=== PATIENT | female | born 1995 | race Caucasian/White ===

== ENCOUNTER 2018-03-23 13:15 | Observation (INO) | payer OTHER, SELFPAY ==
[2018-03-23 13:16] VITALS: BP 130/83; PULSE 85; RESP 18; TEMP 36.1; O2SAT 99; BMI 29.6
--- NOTE | 2018-03-23 13:34 | US_ITS ---
STUDY: ABDOMINAL ULTRASOUND - RIGHT UPPER QUADRANT REASON FOR VISIT: Female, 22 years old. Abdominal pain and vomiting. The patient is 27 weeks . TECHNIQUE: Ultrasound evaluation of the right upper quadrant was performed with real-time and static field-scale imaging. TECHNICAL QUALITY: Adequate. COMPARISON: None. FINDINGS: Liver: The liver measures 13.0 cm. There is normal echogenicity of the liver. The bile ducts are within normal limits. There is hepatic color flow. The direction of portal flow is hepatopetal. There is no demonstrated mass lesion. Gallbladder: Normal distended gallbladder. The gallbladder wall measures 2.0 mm. There is a negative sonographic Adams's sign. There is no pericholecystic fluid. There are multiple echogenic structures within the gallbladder, consistent with multiple gallstones. A small amount of sludge is seen within the gallbladder lumen. Common Bile Duct (C.B.D.): The common bile duct is mildly dilated and measures 7.0 mm. Pancreas: Normal size of the head, body of the pancreas. The tail portion is obscured due to overlying bowel gas. There is normal echogenicity of the pancreas. There is no demonstrated pancreatic mass or cyst. Right Kidney: Normal size of the right kidney. The right kidney measures 12.1 cm x 5.2 cm x 5.4 cm. Normal renal cortex. The right cortex measures 1.5 cm. There is no demonstrated renal mass or cyst. There is mild hydronephrosis of the right kidney. US/Gallbladder IMPRESSION: Multiple gallstones. Sludge is seen within the gallbladder lumen. Mild dilatation of the common bile duct. Electronically Signed: Bryce Osullivan MD at 16:02 EST Tel [phone], Service support ,
--- NOTE | 2018-03-23 13:35 | US_ITS ---
STUDY: SECOND AND THIRD TRIMESTER OBSTETRICAL ULTRASOUND - LIMITED REASON FOR EXAM: Female, 22 years old. Cramping LMP: 09/11/2017 PRIOR ULTRASOUND: None. TECHNIQUE: Transabdominal TECHNICAL QUALITY: Adequate. FINDINGS: There is a single intrauterine fetus. The fetus is in a breech presentation. There is demonstrated cardiac activity with a heart rate of 143 bpm. There is a normal amniotic fluid volume. The largest amniotic fluid pocket measures 4.7 cm. The placenta is fundal in location. There are Grade 0 placental changes. The cervix measures 3.5 cm in length. BIOMETRY: BPD: 7.0: 28 weeks, 1 days HC: 25.9: 28 weeks, 2 days AC: 23.1: 27 weeks, 3 days FL: 5.1: 27 weeks, 3 days Age by LMP: weeks, days. TARAH by LMP: . age by prior US: 27 weeks, 4 days. TARAH by prior US: 06/18/2018. age by current US: 27 weeks, 6 days. TARAH by current US: 06/16/2018. Estimated weight: 1086 grams, +/- 159 grams, 35 percentile. Gender: US/OB Limited With Biometrics IMPRESSION: Single live fetus in a breech presentation. survey not performed on this exam. Placenta is grade 0 and is not low-lying. Cervix is closed. age by current US: 27 weeks, 6 days. TARAH by current US: 06/16/2018. Estimated weight: 1086 grams, +/- 159 grams, 35 percentile. Electronically Signed: Jose Gonzalez MD at 17:04 EST , Service support ,
--- NOTE | 2018-03-23 13:39 | ED.DCSUM_ITS ---
- ER Visit Summary Date of Service: 03/23/18 Chief Complaint: [] Upper abdominal pain, for days, 27 weeks diagnosed with gallstones History of Present Illness: The patient is a 22 F [] she is 27 weeks uncomplicated she indicates for some time she is developed progressively worsening upper abdominal pain caused her to vomit where she cannot eat anything or drink anything, she was seen and evaluated at [facility] in [place] found to have gallstones admitted for what sounds like 24 hours and IV fluids she felt better but reports she still cannot eat or drink she indicates she was not given any specific instructions or follow-up for this process, she is dissatisfied with the care that she received at that facility and she came to [facility] emergency department asking for care could be transferred here for all of her health conditions including her no other past history she has no providers at [place] Physical Examination: [] 130/80 85 General, no distress resting comfortably HEENT is generally unremarkable The neck is supple no adenopathy Cardiovascular, regular rate and rhythm Lungs, clear bilateral Abdomen, soft nontender, she is obviously but nontender denies bleeding Extremities, no clubbing cyanosis or edema Neurologic, awake alert answering questions appropriately moving all 4 extremities Test Results: [] Emergency Department Course and Treatment: [] Long conversation with the patient and her she indicates she is discussed with the care she received in the [place] area she wants to transfer all of her care here explained to her at this point time the emergency department really is not in a position to make these type of specialty referrals on short notice we will obtain screening labs provide IV fluid hydration as she reports she is not able to take anything by mouth no solid or liquid foods as this causes her to have exacerbation of the pain and began vomiting we will discussed with ENVIRONMENTAL EMERGENCIES ASSISTANT on-call Treatment Plan: [] Patient's labs are all generally unremarkable please of those reports, the ultrasound does show gallstones see that report, the formal ultrasound report and OB ultrasound report are also pending, I did speak with Dr. Maya of ENVIRONMENTAL EMERGENCIES ASSISTANT on-call for new patients, spoke with Dr. Artemio pierce who will be by to see the patient discussed options with her once surger y has discussed with the patient will determine her ultimate disposition and consultation with ENVIRONMENTAL EMERGENCIES ASSISTANT on-call Disposition: [] Pending evaluation by surgery Impression: [] 27 weeks , abdominal pain, biliary colic, gallstones This note was generated with [employer] dictation software. It may contain incorrect words, spelling, and punctuation that were not noted in review of the chart prior to signing ED Disposition - Plan for ED Patient: Chief Complaint: Abd Pain Referrals: Care Physician,No Primary [Primary Care Provider] -
[2018-03-23] MEDS: 0.9% Normal Saline 1,000 ML 1000 ML IV (13:54)
[2018-03-23 14:00] LABS: Absolute Lymphocyte Count 1.36 X10^3/ul (0.83-4.51); Absolute Neutrophil Count 5.5 X10^3/uL (2.0-7.7); Basophil# 0.01 X10^3/uL; Basophil% 0.1 % (0-1); Eosinophil# 0.11 X10^3/uL; Eosinophils% 1.5 % (0-5); Hematocrit 35.9 % (37-47); Hemoglobin 12.1 g/dl (12.0-15.0); Lymphocyte # 1.36 X10^3/ul (4.0); Lymphocyte % 18.2 % (19-41); Mean Corp Hgb Conc 33.7 g/gl (32-36); Mean Corpuscular Hgb 29.2 pg (27.0-32.0); Mean Corpuscular Volume 86.7 fL (81-99); Mean Platelet Vol. 9.2 fl (6.2-12.0); Monocyte# 0.49 X10^3/uL; Monocyte% 6.5 % (0-10); Neutrophil # 5.49 X10^3/uL (2.7-7.7); Neutrophil % 73.3 % (47-70); Platelet Count 178 K/mm3 (150-450); RBC Distribution Width CV 13.6 % (11.6-14.6); RBC Distribution Width SD 42.8 fl (35.1-43.9); Red Blood Count 4.14 M/mm3 (4.2-5.4); White Blood Count 7.5 K/mm3 (4.4-11.0)
[2018-03-23 14:02] LABS: POSITIVE COUNT NO; POSITIVE DIFFERENTIAL NO; POSITIVE MORPHOLOGY NO
[2018-03-23 14:13] LABS: AST(SGOT) 26 U/L (15-37); Alanine Aminotransfer ALT/SGPT 45 U/L (13-56); Albumin, Serum 2.6 g/dL (3.2-5.0); Alkaline Phosphatase 80 U/L (45-117); Anion Gap 9 (5-15); BUN 4 mg/dL (7-18); BUN/Creat Ratio 7.7 RATIO (10-20); Calcium,Total 7.9 mg/dL (8.5-10.1); Chloride 111 mmol/L (98-107); Creatinine, Serum 0.52 mg/dL (0.55-1.02); EST Glomerular Filtration Rate 156 mL/min (>60); Est Glom Filt Rate - Afr Amer 189 mL/min (>60); Globulin 3.1 g/dL (2.2-4.2); Glucose 77 mg/dL (74-106); Lipase 151 U/L (73-393); Potassium 3.1 mmol/L (3.5-5.1); Protein, Total 5.7 g/dL (6.4-8.2); Sodium Level 141 mmol/L (136-145)
[2018-03-23 15:37] VITALS: RESP 16
--- NOTE | 2018-03-23 16:04 | NURSING ---
DR URIBE IN ROOM
[2018-03-23] MEDS: 0.9% Normal Saline 1,000 ML 999 ML IV (16:35)
[2018-03-23] MEDS: Potassium Chloride 10mEq/100mL 10 MEQ/100 ML IV.SOLN. 100 MEQ IV BOLUS ×4 (16:35→20:32)
--- NOTE | 2018-03-23 16:41 | NURSING ---
MED SURG GALLSTONES, VOMITING JOJO
--- NOTE | 2018-03-23 16:57 | PCM.HP.STD ---
Problem List (1) Cholecystitis Status: Acute History of Present Illness Date of Admission: 03/23/18 The patient is a 22 year old F who is 27 weeks presented to the emergency room with right upper quadrant and epigastric pain. The patient reports that for the entirety of her she has had no issues. She says that a week ago she began experiencing right upper quadrant and epigastric pain radiating to the back anytime she ate or drink anything. This would cause vomiting. She does not have any nausea. She is not experiencing any fevers or chills. She was admitted to an outside hospital and ultrasound showed gallstones but she was told not to have surgery so she came to our hospital as she was unable to tolerate any food or drink. She is required multiple infusions of saline due to dehydration. 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 Denies: Fever Eyes: Denies: Blurred vision HEENT: Denies: Difficulty Hearing Cardiovascular: Denies: Chest Pain Respiratory: Denies: Cough, Shortness of Breath Gastrointestinal: Reports: Abdominal Pain, Vomiting. Denies: Diarrhea, Hematemesis, Nausea Gynecological: Denies: Vaginal bleeding Musculoskeletal: Denies: Joint Tenderness Skin: Denies: Dryness, Jaundice Neurological: Denies: Balance problems Psychiatric: Denies: Anxiety, Depression Hematologic/ Lymphatic: Denies: Anemia VTE Information - Inpt Only VTE Present on Admission: No VTE Mechan Device Prophylaxis: SCD's Patient Problems: Active and Suspected Problems Cholecystitis (Acute) - Physical Exam General: Alert, Oriented x3, Cooperative HEENT: Atraumatic, PERRLA, EOMI Neck: No JVD Lungs: Clear to auscultation Cardiovascular: Regular rate, Regular Rhythm Abdomen: Soft, Non Tender, Non-Distended, Gravid Extremities: No clubbing Skin: No rashes Musculoskeletal: No Muscle Wasting Lymphatic: No Cervical, Supraclavicular, or Inguinal Adenopathy Neurological: Cranial nerves II-XII grossly intact, Deep Tendon Reflexes 2+/4 and Symmetrical Psych/Mental Status: Normal Affect, Appropriate Vital Signs Temp Pulse Resp BP Pulse Ox 97.0 F L 85 16 130/83 H 99 03/23/18 13:16 03/23/18 13:16 03/23/18 15:37 03/23/18 13:16 03/23/18 13:16 Oxygen Delivery Method Room Air Weight: 177 lb 14.609 oz Body Mass Index (BMI) 29.6 Laboratory Tests Past 24 Hrs 03/23/18 03/23/18 13:45 13:45 WBC 7.5 RBC 4.14 L Hgb 12.1 Hct 35.9 L MCV 86.7 MCH 29.2 MCHC 33.7 RDW 13.6 RDW Differential 42.8 Plt Count 178 MPV 9.2 Immature Gran % (Auto) 0.400 Neut % (Auto) 73.3 H Lymph % (Auto) 18.2 L Dixon % (Auto) 6.5 Eos % (Auto) 1.5 Baso % (Auto) 0.1 Absolute Neuts (auto) 5.5 Absolute Lymphs (auto) 1.36 Total Counted Not Reportable Sodium 141 Potassium 3.1 L Chloride 111 H Carbon Dioxide 21.0 Anion Gap 9 BUN 4 L Creatinine 0.52 L Estim Creat Clear Calc 152.70 Est GFR (MDRD) Af Amer 189 Est GFR (MDRD) Non-Af 156 BUN/Creatinine Ratio 7.7 L Glucose 77 Calcium 7.9 L Total Bilirubin 0.50 Direct Bilirubin 0.30 AST 26 ALT 45 Alkaline Phosphatase 80 Total Protein 5.7 L Albumin 2.6 L Globulin 3.1 Lipase 151 Clinical Impression(s) from Imaging Studies Gallbladder Ultrasound 03/23/18 13:34 IMPRESSION: Multiple gallstones. Sludge is seen within the gallbladder lumen. Mild dilatation of the common bile duct. Electronically Signed: Bryce Osullivan MD at 16:02 EST Tel [phone], Service support , Assessment/Plan All Active Problems Cholecystitis (Acute) 22-year-old female with cholecystitis and biliary colic 1. The patient is having pain with eating or drinking and is unable to tolerate anything by mouth. The patient does have gallstones as well as sludge. The differential would include cholecystitis versus peptic ulcer disease. The patient was started on Carafate in outside hospital and this did not help. As the patient is unable to tolerate any oral intake and does have positive gallstones and sludge I would recommend laparoscopic cholecystectomy. 2. I explained to the patient that I would attempt laparoscopic cholecystectomy tomorrow. If I was unable to perform laparoscopic I would have to convert to an open procedure. I explained the risks including but not limited to bleeding, infection, injury to other organs such as the liver, bile duct, bowels, uterus. I explained the small risk of labor. I also explained that I would likely be doing a cholangiogram as this is low risk to the fetus. 3. I will admit the patient and keep her n.p.o. and keep her on IV fluids. I will consult Dr. Bliss for OB care. She is recommended every shift monitoring as well as preop and postop heart tones. Alvaro Ulloa MD Pager: [facility] [address] [place] [address], [address] [place] [address] Office:
[2018-03-23] MEDS: 0.9% Normal Saline 1,000 ML 125 ML IV (17:00)
[2018-03-23 17:02] LABS: Mucous, Urine 0 SEEN /hpf (<or=2+); Red Blood Cells-Urine 0 SEEN /hpf (0-5)
--- NOTE | 2018-03-23 17:02 | HP.PCM_ITS ---
Problem List (1) Cholecystitis Status: Acute History of Present Illness Date of Admission: 03/23/18 The patient is a 22 year old F who is 27 weeks presented to the emergency room with right upper quadrant and epigastric pain. The patient reports that for the entirety of her she has had no issues. She says that a week ago she began experiencing right upper quadrant and epigastric pain radiating to the back anytime she ate or drink anything. This would cause vomiting. She does not have any nausea. She is not experiencing any fevers or chills. She was admitted to an outside hospital and ultrasound showed gallstones but she was told not to have surgery so she came to our hospital as she was unable to tolerate any food or drink. She is required multiple infusions of saline due to dehydration. 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 Denies: Fever Eyes: Denies: Blurred vision HEENT: Denies: Difficulty Hearing Cardiovascular: Denies: Chest Pain Respiratory: Denies: Cough, Shortness of Breath Gastrointestinal: Reports: Abdominal Pain, Vomiting. Denies: Diarrhea, Hematemesis, Nausea Gynecological: Denies: Vaginal bleeding Musculoskeletal: Denies: Joint Tenderness Skin: Denies: Dryness, Jaundice Neurological: Denies: Balance problems Psychiatric: Denies: Anxiety, Depression Hematologic/ Lymphatic: Denies: Anemia VTE Information - Inpt Only VTE Present on Admission: No VTE Mechan Device Prophylaxis: SCD's Patient Problems: Active and Suspected Problems Cholecystitis (Acute) - Physical Exam General: Alert, Oriented x3, Cooperative HEENT: Atraumatic, PERRLA, EOMI Neck: No JVD Lungs: Clear to auscultation Cardiovascular: Regular rate, Regular Rhythm Abdomen: Soft, Non Tender, Non-Distended, Gravid Extremities: No clubbing Skin: No rashes Musculoskeletal: No Muscle Wasting Lymphatic: No Cervical, Supraclavicular, or Inguinal Adenopathy Neurological: Cranial nerves II-XII grossly intact, Deep Tendon Reflexes 2+/4 and Symmetrical Psych/Mental Status: Normal Affect, Appropriate Vital Signs Temp Pulse Resp BP Pulse Ox 97.0 F L 85 16 130/83 H 99 03/23/18 13:16 03/23/18 13:16 03/23/18 15:37 03/23/18 13:16 03/23/18 13:16 Oxygen Delivery Method Room Air Weight: 177 lb 14.609 oz Body Mass Index (BMI) 29.6 Laboratory Tests Past 24 Hrs 03/23/18 03/23/18 13:45 13:45 WBC 7.5 RBC 4.14 L Hgb 12.1 Hct 35.9 L MCV 86.7 MCH 29.2 MCHC 33.7 RDW 13.6 RDW Differential 42.8 Plt Count 178 MPV 9.2 Immature Gran % (Auto) 0.400 Neut % (Auto) 73.3 H Lymph % (Auto) 18.2 L [place] % (Auto) 6.5 Eos % (Auto) 1.5 Baso % (Auto) 0.1 Absolute Neuts (auto) 5.5 Absolute Lymphs (auto) 1.36 Total Counted Not Reportable Sodium 141 Potassium 3.1 L Chloride 111 H Carbon Dioxide 21.0 Anion Gap 9 BUN 4 L Creatinine 0.52 L Estim Creat Clear Calc 152.70 Est GFR (MDRD) Af Amer 189 Est GFR (MDRD) Non-Af 156 BUN/Creatinine Ratio 7.7 L Glucose 77 Calcium 7.9 L Total Bilirubin 0.50 Direct Bilirubin 0.30 AST 26 ALT 45 Alkaline Phosphatase 80 Total Protein 5.7 L Albumin 2.6 L Globulin 3.1 Lipase 151 Clinical Impression(s) from Imaging Studies Gallbladder Ultrasound 03/23/18 13:34 IMPRESSION: Multiple gallstones. Sludge is seen within the gallbladder lumen. Mild dilatation of the common bile duct. Electronically Signed: Bryce Osullivan MD at 16:02 EST Tel [phone], Service support , Assessment/Plan All Active Problems Cholecystitis (Acute) 22-year-old female with cholecystitis and biliary colic 1. The patient is having pain with eating or drinking and is unable to tolerate anything by mouth. The patient does have gallstones as well as sludge. The differential would include cholecystitis versus peptic ulcer disease. The patient was started on Carafate in outside hospital and this did not help. As the patient is unable to tolerate any oral intake and does have positive gallstones and sludge I would recommend laparoscopic cholecystectomy. 2. I explained to the patient that I would attempt laparoscopic cholecystectomy tomorrow. If I was unable to perform laparoscopic I would have to convert to an open procedure. I explained the risks including but not limited to bleeding, infection, injury to other organs such as the liver, bile duct, bowels, uterus. I explained the small risk of labor. I also explained that I would likely be doing a cholangiogram as this is low risk to the fetus. 3. I will admit the patient and keep her n.p.o. and keep her on IV fluids. I will consult Dr. Bliss for OB care. She is recommended every shift monitoring as well as preop and postop heart tones. Alvaro Ulloa MD Pager: [facility] [address] [place] [address], [address] [place] [address] Office:
[2018-03-23 17:03] VITALS: BP 118/74; PULSE 79; RESP 17; O2SAT 99
[2018-03-23 17:05] LABS: Color, Urine Yellow (Yellow); Glucose, Dipstick Normal (Normal); Ketone-Dipstick 50 mg/dl (Negative); Leukocyte Esterase-Dipstick 100 /ul (Negative); Nitrite-Dipstick Negative (Negative); Occult Blood-Urine Negative /ul (Negative); Protein-Dipstick Negative (Negative); Urine Bilirubin Dipstick Negative (Negative); Urine Clarity Cloudy (Clear); Urine Urobilinogen Normal (Normal)
[2018-03-23 17:14] LABS: Squamous Epithelial Cells - UA 10-25 SEEN /hpf (5-10)
[2018-03-23 17:15] LABS: Bacteria 1+ /hpf (None Seen); White Blood Cells 5-10 SEEN /hpf (0-5)
[2018-03-23 17:22] VITALS: BMI 29.6
[2018-03-23 17:29] VITALS: BMI 29.9
[2018-03-23 17:30] VITALS: BP 114/76; PULSE 77; RESP 16; TEMP 37.1; O2SAT 100
--- NOTE | 2018-03-23 18:04 | NURSING ---
heart rate 140 by chris nolan rn
[2018-03-23 19:36] VITALS: BP 106/65; PULSE 74; RESP 16; TEMP 36.7; O2SAT 98
--- NOTE | 2018-03-23 21:57 | NURSING ---
FHR per doppler 140's at bedside @ 2130
[2018-03-24] VITALS (10 sets, daily range): BP systolic 106–129; BP diastolic 56–81; PULSE 75–91; RESP 16; TEMP 36.4–36.8; O2SAT 93–100
[2018-03-24] MEDS: 0.9% Normal Saline 1,000 ML 125 ML IV ×3 (01:35→23:15)
[2018-03-24 06:00] LABS: Absolute Lymphocyte Count 1.99 X10^3/ul (0.83-4.51); Absolute Neutrophil Count 4.4 X10^3/uL (2.0-7.7); Basophil# 0.02 X10^3/uL; Basophil% 0.3 % (0-1); Eosinophil# 0.17 X10^3/uL; Eosinophils% 2.4 % (0-5); Hematocrit 31.4 % (37-47); Hemoglobin 10.6 g/dl (12.0-15.0); Lymphocyte # 1.99 X10^3/ul (4.0); Lymphocyte % 27.8 % (19-41); Mean Corp Hgb Conc 33.8 g/gl (32-36); Mean Corpuscular Hgb 29.8 pg (27.0-32.0); Mean Corpuscular Volume 88.2 fL (81-99); Mean Platelet Vol. 10.1 fl (6.2-12.0); Monocyte# 0.52 X10^3/uL; Monocyte% 7.3 % (0-10); Neutrophil # 4.43 X10^3/uL (2.7-7.7); Neutrophil % 61.8 % (47-70); Platelet Count 174 K/mm3 (150-450); RBC Distribution Width CV 13.6 % (11.6-14.6); RBC Distribution Width SD 40.9 fl (35.1-43.9); Red Blood Count 3.56 M/mm3 (4.2-5.4); White Blood Count 7.2 K/mm3 (4.4-11.0)
[2018-03-24 06:09] LABS: POSITIVE COUNT NO; POSITIVE DIFFERENTIAL NO; POSITIVE MORPHOLOGY NO
[2018-03-24 06:20] LABS: ALB/GLOB Ratio 0.7 RATIO (0.9-2.4); AST(SGOT) 23 U/L (15-37); Alanine Aminotransfer ALT/SGPT 35 U/L (13-56); Alkaline Phosphatase 63 U/L (45-117); Anion Gap 9 (5-15); BUN 2 mg/dL (7-18); BUN/Creat Ratio 5.4 RATIO (10-20); Calcium,Total 7.4 mg/dL (8.5-10.1); Chloride 113 mmol/L (98-107); Creatinine, Serum 0.37 mg/dL (0.55-1.02); EST Glomerular Filtration Rate 232 mL/min (>60); Est Glom Filt Rate - Afr Amer 280 mL/min (>60); Estimated Creatinine Clearance 205.95 ml/min; Globulin 2.8 g/dL (2.2-4.2); Glucose 70 mg/dL (74-106); Potassium 3.1 mmol/L (3.5-5.1); Protein, Total 4.8 g/dL (6.4-8.2); Sodium Level 142 mmol/L (136-145)
[2018-03-24 07:15] LABS: Magnesium 1.3 mg/dL (1.6-2.6)
[2018-03-24] MEDS: Potassium Chloride 10mEq/100mL 10 MEQ/100 ML IV.SOLN. 100 MEQ IV BOLUS ×4 (07:24→14:45)
--- NOTE | 2018-03-24 08:33 | NURSING ---
pt to or via bed
--- NOTE | 2018-03-24 10:35 | GALL_PTH ---
PATIENT: ROSAMARIA BANDA LOC: MS3 U#:[id number] AGE/SX: 22/F ROOM: MS309 RE03/23/[address]: Dr. Alvaro Ulloa MD : 1995 BED: 1 DIS: 03/25/2018 SPEC #: [id number] RECD: 03/24/18 12:47 STATUS: L[facility] #: [id number] ROBI: 03/24/18 10:[address]: Alvaro Ulloa DEPT: SURGICAL PATHOLOGY RECD BY: Timur Givens ENTERED: 03/24/18 13:32 SP TYPE: IESHA KIDD DR: Dr. Renee Bliss MD No Primary Care Phys Tissues: Gallbladder, NOS Procedures: Surgery Specimen Level III HEADER OPERATION: Laparoscopic cholecystectomy PRE-OP DIAGNOSIS: Cholelithiasis, biliary colic, nausea and vomiting TISSUE SUBMITTED: Gallbladder and contents MICROSCOPIC DIAGNOSIS Gallbladder and contents: Chronic cholecystitis and cholelithiasis. SJ:gina 03/27/18 MICROSCOPIC DESCRIPTION Slides are reviewed. GROSS DESCRIPTION Received is one container labeled with the patient's name and designated gallbladder and contents. The specimen consists of a gallbladder measuring 10 cm in length and up to 3 cm in diameter. The external surface is pink-donohue, smooth and glistening for the most part. Focally it is granular, hemorrhagic and contains cautery artifact. The gallbladder contains green-yellow mucoid bile and multiple, mulberry, yellowish-orange stones measuring in aggregate 3 x 2.5 x 0.5 cm and 0.2 to 0.3 cm in greatest dimension. The mucosa is bile-stained and without any mass lesions. The gallbladder wall measures up to 0.2 cm in thickness. Clip Loading Machine Adjuster sections from the gallbladder and the cystic duct are submitted in one cassette. / VICTORIA:gina 03/24/18 TC:3 CPT: 58186
--- NOTE | 2018-03-24 12:17 | PCM.OPRPT ---
Problem List (1) Cholecystitis Status: Acute Report of Operation Date of Procedure: 03/24/18 Pre-Operative Diagnosis: 1. Cholelithiasis and sludge. 2. Nausea and vomiting Post-Operative Diagnosis: Same Surgery/Procedure Performed:: Laparoscopic cholecystectomy Specimen's removed: Gallbladder and contents Description of Procedure: After obtaining informed consent patient was brought back to the operating room. General anesthesia was induced. The abdomen was prepped and draped in usual sterile fashion. A small midline incision was made superior to the umbilicus and deepened to the level of fascia. The fascia was elevated and incised. Next the peritoneum was elevated and incised in the same fashion. Finger sweep was performed and the Sloan trocar was placed into the abdomen. The balloon was inflated. The abdomen was inflated to 15 mmHg. Next a camera was introduced into the abdomen and the abdomen was inspected. Next under direct visualization three 5-mm ports were placed one subxiphoid and 2 subcostal. Next the gallbladder was elevated and retracted toward the right shoulder. The peritoneum was stripped from the gallbladder. The infundibulum was located and retracted laterally. Next the triangle of Calot was dissected and the cystic duct and cystic artery were identified. Cholangiograms were not done due to the . Three hemolock clips were placed across the cystic duct. The cystic duct was then divided leaving 2 clips on the stump. The cystic artery was clipped and divided in the same fashion. The hook cautery was then used to take the gallbladder off of the gallbladder bed. Hemostasis was obtained. Gallbladder fossa was irrigated and no active bleeding or bile leakage was noted. Next the camera switched to a 5 mm camera and introduced in the subxiphoid port. An Endopouch bag was placed through the umbilical port and the gallbladder was placed into it. The gallbladder was then removed through the umbilical incision. The camera was then reinserted through the umbilical port. The gallbladder fossa was inspected once more and noted to be hemostatic with no leaking bile. The abdomen was suctioned dry. The 5 mm ports were removed under direct visualization. The umbilical port was then removed and the air was removed from the abdomen. Next using an 0 Vicryl suture the umbilical fascia was closed in a [id number] fashion. The umbilical port site was irrigated local anesthetic was administered to all the incisions. All the incisions were closed with interrupted subcuticular 4-0 Monocryl sutures followed by Steri-Strips and dressings. The patient was awoken and taken to PACU in stable condition. - Admit VTE Documentation VTE Mechan Device Prophylaxis: SCD's
--- NOTE | 2018-03-24 12:21 | OP.PCM_ITS ---
Problem List (1) Cholecystitis Status: Acute Report of Operation Date of Procedure: 03/24/18 Pre-Operative Diagnosis: 1. Cholelithiasis and sludge. 2. Nausea and vomiting Post-Operative Diagnosis: Same Surgery/Procedure Performed:: Laparoscopic cholecystectomy Specimen's removed: Gallbladder and contents Description of Procedure: After obtaining informed consent patient was brought back to the operating room. General anesthesia was induced. The abdomen was prepped and draped in usual sterile fashion. A small midline incision was made superior to the umbilicus and deepened to the level of fascia. The fascia was elevated and incised. Next the peritoneum was elevated and incised in the same fashion. Finger sweep was performed and the Sloan trocar was placed into the abdomen. The balloon was inflated. The abdomen was inflated to 15 mmHg. Next a camera was introduced into the abdomen and the abdomen was inspected. Next under direct visualization three 5-mm ports were placed one subxiphoid and 2 subcostal. Next the gallbladder was elevated and retracted toward the right shoulder. The peritoneum was stripped from the gallbladder. The infundibulum was located and retracted laterally. Next the triangle of Calot was dissected and the cystic duct and cystic artery were identified. Cholangiograms were not done due to the . Three hemolock clips were placed across the cystic duct. The cystic duct was then divided leaving 2 clips on the stump. The cystic artery was clipped and divided in the same fashion. The hook cautery was then used to take the gallbladder off of the gallbladder bed. Hemostasis was obtained. Gallbladder fossa was irrigated and no active bleeding or bile leakage was noted. Next the camera switched to a 5 mm camera and introduced in the subxiphoid port. An Endopouch bag was placed through the umbilical port and the gallbladder was placed into it. The gallbladder was then removed through the u mbilical incision. The camera was then reinserted through the umbilical port. The gallbladder fossa was inspected once more and noted to be hemostatic with no leaking bile. The abdomen was suctioned dry. The 5 mm ports were removed under direct visualization. The umbilical port was then removed and the air was removed from the abdomen. Next using an 0 Vicryl suture the umbilical fascia was closed in a [id number] fashion. The umbilical port site was irrigated local anesthetic was administered to all the incisions. All the incisions were closed with interrupted subcuticular 4-0 Monocryl sutures followed by Steri- Strips and dressings. The patient was awoken and taken to PACU in stable condition. - Admit VTE Documentation VTE Mechan Device Prophylaxis: SCD's
--- NOTE | 2018-03-24 12:23 | DCINST_ITS ---
Discharge Diet: Light diet - advance as tolerated Discharge Activity: Return to Normal Activity, May Not Drive - for 2-3 days or while taking narcotic pain medicataions., - - Do not drive, work heavy equipment or sign legal documents for 24 hours. May shower in (days): 1 - with the bandage in place. Lifting Restrictions: 20 lbs Additional Activity Instructions:: Pain medication may cause nausea. You should typically eat light foods as you take your pain medications. Pain medication may also cause constipation. If this is a problem for you, please discuss with your doctor. Call your doctor if your incision/area has: Continuous Slow Oozing, Sudden Increased Bleeding, Increased Pain/ Swelling, Increased Redness, Foul Smelling Discharge, Fever of 101 or Higher Call your doctor if you observe: Fever of 101 or Higher Suture Line Care: Avoid Pulling/Pushing, Avoid Pinching/Bending Additional Dressing/Incision Instructions:: Leave operative bandaids on for 2 days. When you remove dressing, leave Steri-Strips on until your follow-up appointment, or until the Steri-Strips fall off on their own. Allergies/Adverse Reactions: Allergies No Known Allergies Allergy (Verified 03/23/18 13:16) Medications to take at Discharge Vit No.130/Iron/Folic [ Tablet] 1 each PO DAILY 03/23/18 Oxycodone HCl/Acetaminophen [Percocet 5/325] 1 - 2 tablet PO Q4H PRN PRN 7 Days #40 tablet 03/24/18 The following prescriptions were given: Oxycodone HCl/Acetaminophen [Percocet 5/325] 1 - 2 tablet PO Q4H PRN PRN 7 Days #40 tablet PRN Reason: Pain Primary Care Physician: Care Physician,No Primary [Primary Care Provider] - Test Results: Test results from this visit will be discussed in further detail at your follow- up appointment, if applicable. Please Follow Up With: Alvaro Ulloa MD When: Please call to schedule 2 week follow up appointment. [phone]
[2018-03-24] MEDS: oxyCODONE 5 MG Tablet PO ×2 (13:57→20:46)
[2018-03-24] MEDS: Morphine 2 MG/ML Syringe IV ×3 (15:20→23:29)
[2018-03-24] MEDS: 0.9% NaCl Peripheral Flush Adult/Peds IV (15:22)
[2018-03-24] MEDS: Bupiv/Epi 0.5% Mpf 30 ML Vial (16:58)
[2018-03-24] MEDS: Sugammadex Sodium 200 MG/2 ML VIAL IV (16:59)
[2018-03-24] MEDS: Ondansetron 4 MG/2 ML Vial IV (18:45)
--- NOTE | 2018-03-24 22:37 | NURSING ---
2230 FHR 160's per doppler at bedside.
[2018-03-25 01:06] VITALS: BP 109/68; PULSE 70; RESP 14; TEMP 36.8; O2SAT 96
[2018-03-25] MEDS: oxyCODONE 5 MG Tablet PO ×3 (01:12→13:30)
--- NOTE | 2018-03-25 01:32 | PCM.CONS.GEN ---
Problem List (1) Supervision of normal in third trimester Status: Acute (2) Status: Acute Reason for Consult Date of Consultation: 03/24/18 Reason for Consultation: History of Present Illness: The patient is a 22 year old F @ 27 weeks presents for gall bladder removal. She has been receiving routine care in [place] and in the last two weeks has developed severe persistent nausea and vomiting and biliary colic. Patient had imaging that showed gallbladder abnormalities and had a general surgery consult. After being evaluated it was recommended for a gallbladder removal due to severe symptoms. Patient denies any vaginal bleeding loss of fluid admits good movement and denies any regular contractions. 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 Denies: Diarrhea Genitourinary: Denies: Dysuria, Hematuria Musculoskeletal: Denies: Joint Pain, Muscle pain Skin: Denies: Lesions, Rash Neurological: Denies: Blurred vision, Focal weakness, Headaches Psychiatric: Denies: Anxiety, Depression Endocrine: Denies: Heat/ Cold Intolerance Hematologic/ Lymphatic: Denies: Easy Bruising, Easy Bleeding Patient Problems: Active and Suspected Problems Cholecystitis (Acute) Supervision of normal in third trimester (Acute) (Acute) - Physical Exam General: Alert, Oriented x3 HEENT: Atraumatic, Normocephalic Oral: Moist Mucosa Neck: Trachea Midline, Thyroid Normal Size and Texture Lungs: Normal air movement Cardiovascular: Regular rate Abdomen: Soft, Non Tender, Non-Distended Extremities: No edema Skin: No rashes Musculoskeletal: No Tenderness to Palpation of Joints or Extremities Neurological: Neuro grossly intact Psych/Mental Status: Normal Affect Vital Signs Temp Pulse Resp BP Pulse Ox 98.2 F 70 14 109/68 96 03/25/18 01:06 03/25/18 01:06 03/25/18 01:06 03/25/18 01:06 03/25/18 01:06 Oxygen Delivery Method Room Air Weight: 180 lb Body Mass Index (BMI) 29.9 Intake and Output for Last 24 Hours 03/23/18 03/24/18 03/25/18 23:59 23:59 23:59 Intake Total 3270 / 3270 1884 / 188 Balance 3270 / 3270 1884 / 1884 Laboratory Tests Past 24 Hrs 03/24/18 03/24/18 03/24/18 05:34 05:34 05:34 WBC 7.2 RBC 3.56 L Hgb 10.6 L Hct 31.4 L MCV 88.2 MCH 29.8 MCHC 33.8 RDW 13.6 RDW Differential 40.9 Plt Count 174 MPV 10.1 Immature Gran % (Auto) 0.400 Neut % (Auto) 61.8 Lymph % (Auto) 27.8 [place] % (Auto) 7.3 Eos % (Auto) 2.4 Baso % (Auto) 0.3 Absolute Neuts (auto) 4.4 Absolute Lymphs (auto) 1.99 Total Counted Not Reportable Sodium 142 Potassium 3.1 L Chloride 113 H Carbon Dioxide 20.0 L Anion Gap 9 BUN 2 L Creatinine 0.37 L Estim Creat Clear Calc 205.95 Est GFR (MDRD) Af Amer 280 Est GFR (MDRD) Non-Af 232 BUN/Creatinine Ratio 5.4 L Glucose 70 L Calcium 7.4 L Magnesium 1.3 L Total Bilirubin 0.60 AST 23 ALT 35 Alkaline Phosphatase 63 Total Protein 4.8 L Albumin 2.0 L Globulin 2.8 Albumin/Globulin Ratio 0.7 L Assessment/Plan All Active Problems Cholecystitis (Acute) Supervision of normal in third trimester (Acute) (Acute) 22-year-old at 27 weeks presents for gallbladder removal Recommend Doppler every 8 hours and document heart tones prior and after the procedure. No steroids indicated at this time for lung maturity, no tocolysis this unless develops contractions.
--- NOTE | 2018-03-25 01:37 | CON.PCM_ITS ---
Problem List (1) Supervision of normal in third trimester Status: Acute (2) Status: Acute Reason for Consult Date of Consultation: 03/24/18 Reason for Consultation: History of Present Illness: The patient is a 22 year old F @ 27 weeks presents for gall bladder removal. She has been receiving routine care in [place] and in the last two weeks has developed severe persistent nausea and vomiting and biliary colic. Patient had imaging that showed gallbladder abnormalities and had a general surgery consult. After being evaluated it was recommended for a gallbladder removal due to severe symptoms. Patient denies any vaginal bleeding loss of fluid admits good movement and denies any regular contractions. 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 Denies: Diarrhea Genitourinary: Denies: Dysuria, Hematuria Musculoskeletal: Denies: Joint Pain, Muscle pain Skin: Denies: Lesions, Rash Neurological: Denies: Blurred vision, Focal weakness, Headaches Psychiatric: Denies: Anxiety, Depression Endocrine: Denies: Heat/ Cold Intolerance Hematologic/ Lymphatic: Denies: Easy Bruising, Easy Bleeding Patient Problems: Active and Suspected Problems Cholecystitis (Acute) Supervision of normal in third trimester (Acute) (Acute) - Physical Exam General: Alert, Oriented x3 HEENT: Atraumatic, Normocephalic Oral: Moist Mucosa Neck: Trachea Midline, Thyroid Normal Size and Texture Lungs: Normal air movement Cardiovascular: Regular rate Abdomen: Soft, Non Tender, Non-Distended Extremities: No edema Skin: No rashes Musculoskeletal: No Tenderness to Palpation of Joints or Extremities Neurological: Neuro grossly intact Psych/Mental Status: Normal Affect Vital Signs Temp Pulse Resp BP Pulse Ox 98.2 F 70 14 109/68 96 03/25/18 01:06 03/25/18 01:06 03/25/18 01:06 03/25/18 01:06 03/25/18 01:06 Oxygen Delivery Method Room Air Weight: 180 lb Body Mass Index (BMI) 29.9 Intake and Output for Last 24 Hours 03/23/18 03/24/18 03/25/18 23:59 23:59 23:59 Intake Total 3270 / 3270 1884 / 188 Balance 3270 / 3270 1884 / 1884 Laboratory Tests Past 24 Hrs 03/24/18 03/24/18 03/24/18 05:34 05:34 05:34 WBC 7.2 RBC 3.56 L Hgb 10.6 L Hct 31.4 L MCV 88.2 MCH 29.8 MCHC 33.8 RDW 13.6 RDW Differential 40.9 Plt Count 174 MPV 10.1 Immature Gran % (Auto) 0.400 Neut % (Auto) 61.8 Lymph % (Auto) 27.8 [place] % (Auto) 7.3 Eos % (Auto) 2.4 Baso % (Auto) 0.3 Absolute Neuts (auto) 4.4 Absolute Lymphs (auto) 1.99 Total Counted Not Reportable Sodium 142 Potassium 3.1 L Chloride 113 H Carbon Dioxide 20.0 L Anion Gap 9 BUN 2 L Creatinine 0.37 L Estim Creat Clear Calc 205.95 Est GFR (MDRD) Af Amer 280 Est GFR (MDRD) Non-Af 232 BUN/Creatinine Ratio 5.4 L Glucose 70 L Calcium 7.4 L Magnesium 1.3 L Total Bilirubin 0.60 AST 23 ALT 35 Alkaline Phosphatase 63 Total Protein 4.8 L Albumin 2.0 L Globulin 2.8 Albumin/Globulin Ratio 0.7 L Assessment/Plan All Active Problems Cholecystitis (Acute) Supervision of normal in third trimester (Acute) (Acute) 22-year-old at 27 weeks presents for gallbladder removal Recommend Doppler every 8 hours and document heart tones prior and after the procedure. No steroids indicated at this time for lung maturity, no tocolysis this unless develops contractions.
[2018-03-25] MEDS: 0.9% Normal Saline 1,000 ML 125 ML IV (08:03)
[2018-03-25] MEDS: Morphine 2 MG/ML Syringe IV (08:06)
[2018-03-25] MEDS: 0.9% NaCl Peripheral Flush Adult/Peds IV (08:07)
[2018-03-25 08:32] VITALS: BP 109/65; PULSE 79; RESP 18; TEMP 36.5; O2SAT 96
--- NOTE | 2018-03-25 10:00 | NURSING ---
FHR 140's
[2018-03-25 11:27] LABS: Absolute Lymphocyte Count 1.11 X10^3/ul (0.83-4.51); Absolute Neutrophil Count 7.2 X10^3/uL (2.0-7.7); Eosinophil# 0.09 X10^3/uL; Hematocrit 31.2 % (37-47); Hemoglobin 10.5 g/dl (12.0-15.0); Lymphocyte # 1.11 X10^3/ul (4.0); Lymphocyte % 12.4 % (19-41); Mean Corp Hgb Conc 33.7 g/gl (32-36); Mean Corpuscular Hgb 29.7 pg (27.0-32.0); Mean Corpuscular Volume 88.1 fL (81-99); Mean Platelet Vol. 9.6 fl (6.2-12.0); Monocyte# 0.56 X10^3/uL; Monocyte% 6.3 % (0-10); Neutrophil # 7.18 X10^3/uL (2.7-7.7); Neutrophil % 80.2 % (47-70); POSITIVE COUNT NO; POSITIVE DIFFERENTIAL NO; POSITIVE MORPHOLOGY NO; Platelet Count 180 K/mm3 (150-450); RBC Distribution Width SD 44.7 fl (35.1-43.9); Red Blood Count 3.54 M/mm3 (4.2-5.4)
--- NOTE | 2018-03-25 11:44 | NURSING ---
explained to pt to wash hands prior to getting urine for UA and culture. Explained how to clean and collect urine midstream. Pt is in bathroom washing hands. Pt understands directions.
[2018-03-25 11:46] LABS: Anion Gap 7 (5-15); BUN 2 mg/dL (7-18); BUN/Creat Ratio 3.3 RATIO (10-20); Calcium,Total 7.5 mg/dL (8.5-10.1); Chloride 112 mmol/L (98-107); EST Glomerular Filtration Rate 132 mL/min (>60); Est Glom Filt Rate - Afr Amer 160 mL/min (>60); Glucose 110 mg/dL (74-106); Magnesium 1.7 mg/dL (1.6-2.6); Potassium 3.3 mmol/L (3.5-5.1); Sodium Level 142 mmol/L (136-145)
[2018-03-25 12:18] LABS: Color, Urine Yellow (Yellow); Glucose, Dipstick Normal (Normal); Ketone-Dipstick Negative (Negative); Leukocyte Esterase-Dipstick Negative /ul (Negative); Nitrite-Dipstick Negative (Negative); Occult Blood-Urine Negative /ul (Negative); Protein-Dipstick Negative (Negative); Urine Bilirubin Dipstick Negative (Negative); Urine Clarity Clear (Clear); Urine Urobilinogen 1 mg/dl (Normal)
--- NOTE | 2018-03-25 13:36 | NURSING ---
No UTI. Dr. Stahl called and made aware. Dr. Stahl okay'ed to Discharge.
--- NOTE | 2018-03-25 13:45 | NURSING ---
Dr. Stahl is aware that Potassium today is 3.3, no new home going orders and new orders right now.
[2018-03-25 14:02] VITALS: BP 115/67; PULSE 81; RESP 18; TEMP 37; O2SAT 98
== END 2018-03-25 14:01 | disposition home or self-care (01) ==
LOC: ED 16:48 → MS3 17:05
PROVIDERS: Surgery; Admitting Provider Surgery; Emergency Provider Emergency Medicine; Visit Provider Surgery
PROC: (CPT 47610; principal; 2018-03-24 10:15)
DX: O26.892 Other specified pregnancy related conditions, second trimester (principal); Z3A.27 27 weeks gestation of pregnancy; K80.12 Calculus of gallbladder with acute and chronic cholecystitis without obstruction; Z87.891 Personal history of nicotine dependence
CPT/HCPCS: 00790; 47562; 36415; 76705; 76816; 80048; 80053; 80076; 81001; 81002; 83690; 83735; 85025; 87086; 88304; 96361; 96365; 96366; 96375; 96376; 99218; 99284; 99406; J7030; J7040; J7120; A4216; G0378; J2405

== ENCOUNTER → 2018-05-26 16:34 | Outpatient (CLI) | payer OTHER, SELFPAY ==
[2018-05-26 16:00] VITALS: BMI 30.9
== END ==
PROVIDERS: Referring Provider Nurse Practitioner Women's Health; Visit Provider Nurse Practitioner Women's Health
DX: Z34.93 Encounter for supervision of normal pregnancy, unspecified, third trimester (principal)
CPT/HCPCS: 87081

== ENCOUNTER 2018-06-19 10:10 | Inpatient (IN) | payer OTHER, SELFPAY ==
[2018-06-15 13:12] VITALS: BMI 30.9
[2018-06-19 10:06] LABS: ROM Internal Control Test YES-OK TO RESULT pt. (Internal QC)
[2018-06-19 10:07] LABS: ROM Patient Test POSITIVE (Negative)
[2018-06-19 10:08] LABS: Record Kit Lot#, ROM+ J7836
[2018-06-19 10:28] VITALS: BMI 33.7
[2018-06-19] MEDS: Lactated Ringers 1,000 ML 50 ML IV ×3 (10:45→21:47)
[2018-06-19 11:03] LABS: Hematocrit 37.5 % (37-47); Hemoglobin 12.3 g/dl (12.0-15.0); Mean Corp Hgb Conc 32.8 g/gl (32-36); Mean Corpuscular Hgb 27.3 pg (27.0-32.0); Mean Corpuscular Volume 83.1 fL (81-99); Mean Platelet Vol. 10.7 fl (6.2-12.0); Platelet Count 232 K/mm3 (150-450); RBC Distribution Width CV 13.4 % (11.6-14.6); RBC Distribution Width SD 39.8 fl (35.1-43.9); Red Blood Count 4.51 M/mm3 (4.2-5.4); White Blood Count 12.4 K/mm3 (4.4-11.0)
[2018-06-19] MEDS: Oxytocin 30 units/NS 500 ml 30 UNITS/500 ML IV.SOLN IV (11:07)
[2018-06-19 11:08] LABS: Scan Indicated on CBC? Y/N NO
[2018-06-19] MEDS: fentaNYL-bupivacaine (epidural) 100 ML BAG EPIDURAL ×2 (18:20→23:00)
--- NOTE | 2018-06-20 01:14 | PCM.HP.OB ---
- Problem List (1) PROM (premature rupture of membranes) Status: Acute (2) Cholecystitis Status: Acute (3) Supervision of normal in third trimester Status: Acute Qualifiers: Comment: PRR TARAH 06/18/18 Chris boy Efrain (4) Status: Acute Qualifiers: Comment: ANDREW Cecilia. genetic carrier and ntd screening declined. normal anatomy scan History Date of Admission: 03/23/18 Final TARAH: 06/18/18 Gestational age: 40 Weeks and 2 Days History of this : This is a 23 year-old, at 40 weeks gestational age presents iwth PROM 1 cm and ROM at 6 am clear fluid. she has had an uncomplicated , denies any vb admits clear LOF good fm and irregular ctx. Medical History: Medical History (Last Reviewed 06/15/18 @ 13:11 by gNa Olguin) Asthma J45.909 Surgical History: Surgical History (Last Reviewed 06/15/18 @ 13:11 by Nga Olguin) Hx laparoscopic cholecystectomy Z90.49 Allergies No Known Allergies Allergy (Verified 06/19/18 10:29) Home Medications: Home Medications Vit No.130/Iron/Folic [ Tablet] 1 ea PO DAILY 03/23/18 Smoking Status: Former smoker Alcohol: None Number of Fetus(es): 1 Heart Tracin moderate variability reactive no decelerations category I tracing [place]: irregular History Past Pregnancies: Past Pregnancies Delivery Date Name GA/Weeks Outcome Route Weight Gender Labor Length Anesthesia Delivery Location Provider FOB Labs: Mom's Labs & Results 06/19/18 06/19/18 06/19/18 09:50 10:45 10:45 WBC 12.4 H RBC 4.51 Hgb 12.3 Hct 37.5 MCV 83.1 MCH 27.3 MCHC 32.8 RDW 13.4 RDW Differential 39.8 Plt Count 232 MPV 10.7 Vag Amniotic Fld Detect POSITIVE H Blood Type O POSITIVE Antibody Screen NEGATIVE Course Did the patient receive Yes care? Labs Blood Type: O RH: POSITIVE RPR/VDRL/Syphilis Nonreactive Rubella status Immune HbSAg Negative Date Done: 12/01/17 Chlamydia Negative Gonorrhea Negative HIV/AIDS Non-Reactive Group B Strep: Negative Current Obstetrical History Gestational Diabetes No Incompetent Cervix No Infertility No IUGR No Macrosomia No Hypertension/Pre-eclampsia No Placenta Previa/Abruption No PTL/PROM No Uterine anomaly No Oligohydramnios No Polyhydramnios No Multiple gestation No Past Medical History Asthma Yes: childhood asthma no longer using inhaler Diabetes No Hypertension No Heart disease No Mitral valve prolapse No Neurologic/Seizure disorder/ No Migraines Kidney disease No Liver disease No Varicosities No Clotting disorders/Hx of DVT No Thyroid Dysfunction No Other medical diseases No Psychiatric disorders No Major trauma No Abnormal PAP smear No Sleep apnea No Mammogram in the last 2 years No Social History Marital Status: Alleged father Efrain Schneider Hx Smoking No Smoking Status Former smoker How long have you used n/a substances (years)? What date/time did you last n/a use any of the above? Have you had any previous n/a inpatient or outpatient treatment Expected Delivery Method: Spontaneous Vaginal Review of Systems Constitutional: Denies: Fever, Malaise Eyes: Denies: Blurred vision, Vision Change HEENT: Denies: Head Aches, Visual Changes Cardiovascular: Denies: Chest Pain, Palpitations Respiratory: Denies: Cough, Shortness of Breath, Wheezing Gastrointestinal: Denies: Abdominal Pain, Diarrhea, Nausea, Vomiting Genitourinary: Denies: Dysuria, Hematuria Gynecological: Reports: Vaginal discharge Musculoskeletal: Denies: Joint Pain, Muscle pain Skin: Denies: Lesions, Rash Neurological: Denies: Blurred vision, Focal weakness, Headaches Psychiatric: Denies: Anxiety, Depression Endocrine: Denies: Heat/ Cold Intolerance Hematologic/ Lymphatic: Denies: Easy Bruising, Easy Bleeding Physical Exam General: Alert, Cooperative, No apparent distress HEENT: Atraumatic, Normocephalic. Negative for: Thyromegaly, Lymphadenopathy Cardiovascular: Regular rate Lungs: Normal air movement Abdomen: Soft, Non Tender, Gravid Neurological: Deep Tendon Reflexes 2+/4 and Symmetrical, Neuro grossly intact. 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 Negative for: Vulvar lesions Estimated gestational size: Appropriate for gestational size Presentation: Cephalic Cervix Dilation (cm): 1 Assessment/Plan All Active Problems (Last Reviewed 06/15/18 @ 13:11 by Nga Olguin) PROM (premature rupture of membranes) (Acute) Cholecystitis (Acute) Supervision of normal in third trimester (Acute) (Acute) This is a 23 year-old, at 40 weeks gestational age presents with PROM Patient presents IOL, plan management for , pitocin per procotol Pain management: plans epidural. GBS negative. Management of any complications: none I have reviewed the [facility] and made any clinically relevant updates.
--- NOTE | 2018-06-20 01:17 | HP.PCM_ITS ---
- Problem List (1) PROM (premature rupture of membranes) Status: Acute (2) Cholecystitis Status: Acute (3) Supervision of normal in third trimester Status: Acute Qualifiers: Comment: PRR TARAH 06/18/18 Chris boy Efrain (4) Status: Acute Qualifiers: Comment: ANDREW Cecilia. genetic carrier and ntd screening declined. normal anatomy scan History Date of Admission: 03/23/18 Final TARAH: 06/18/18 Gestational age: 40 Weeks and 2 Days History of this : This is a 23 year-old, at 40 weeks gestational age presents iwth PROM 1 cm and ROM at 6 am clear fluid. she has had an uncomplicated , denies any vb admits clear LOF good fm and irregular ctx. Medical History: Medical History (Last Reviewed 06/15/18 @ 13:11 by Nga Olguin) Asthma J45.909 Surgical History: Surgical History (Last Reviewed 06/15/18 @ 13:11 by Nga Olguin) Hx laparoscopic cholecystectomy Z90.49 Allergies No Known Allergies Allergy (Verified 06/19/18 10:29) Home Medications: Home Medications Vit No.130/Iron/Folic [ Tablet] 1 ea PO DAILY 03/23/18 Smoking Status: Former smoker Alcohol: None Number of Fetus(es): 1 Heart Tracin moderate variability reactive no decelerations category I tracing [place]: irregular History Past Pregnancies: Past Pregnancies Delivery Date Name GA/Weeks Outcome Route Weight Gender Labor Length Anesthesia Delivery Location Provider FOB Labs: Mom's Labs & Results 06/19/18 06/19/18 06/19/18 09:50 10:45 10:45 WBC 12.4 H RBC 4.51 Hgb 12.3 Hct 37.5 MCV 83.1 MCH 27.3 MCHC 32.8 RDW 13.4 RDW Differential 39.8 Plt Count 232 MPV 10.7 Vag Amniotic Fld Detect POSITIVE H Blood Type O POSITIVE Antibody Screen NEGATIVE Course Did the patient receive Yes care? Labs Blood Type: O RH: POSITIVE RPR/VDRL/Syphilis Nonreactive Rubella status Immune HbSAg Negative Date Done: 12/01/17 Chlamydia Negative Gonorrhea Negative HIV/AIDS Non-Reactive Group B Strep: Negative Current Obstetrical History Gestational Diabetes No Incompetent Cervix No Infertility No IUGR No Macrosomia No Hypertension/Pre-eclampsia No Placenta Previa/Abruption No PTL/PROM No Uterine anomaly No Oligohydramnios No Polyhydramnios No Multiple gestation No Past Medical History Asthma Yes: childhood asthma no longer using inhaler Diabetes No Hypertension No Heart disease No Mitral valve prolapse No Neurologic/Seizure disorder/ No Migraines Kidney disease No Liver disease No Varicosities No Clotting disorders/Hx of DVT No Thyroid Dysfunction No Other medical diseases No Psychiatric disorders No Major trauma No Abnormal PAP smear No Sleep apnea No Mammogram in the last 2 years No Social History Marital Status: Alleged father Efrain Schneider Hx Smoking No Smoking Status Former smoker How long have you used n/a substances (years)? What date/time did you last n/a use any of the above? Have you had any previous n/a inpatient or outpatient treatment Expected Delivery Method: Spontaneous Vaginal Review of Systems Constitutional: Denies: Fever, Malaise Eyes: Denies: Blurred vision, Vision Change HEENT: Denies: Head Aches, Visual Changes Cardiovascular: Denies: Chest Pain, Palpitations Respiratory: Denies: Cough, Shortness of Breath, Wheezing Gastrointestinal: Denies: Abdominal Pain, Diarrhea, Nausea, Vomiting Genitourinary: Denies: Dysuria, Hematuria Gynecological: Reports: Vaginal discharge Musculoskeletal: Denies: Joint Pain, Muscle pain Skin: Denies: Lesions, Rash Neurological: Denies: Blurred vision, Focal weakness, Headaches Psychiatric: Denies: Anxiety, Depression Endocrine: Denies: Heat/ Cold Intolerance Hematologic/ Lymphatic: Denies: Easy Bruising, Easy Bleeding Physical Exam General: Alert, Cooperative, No apparent distress HEENT: Atraumatic, Normocephalic. Negative for: Thyromegaly, Lymphadenopathy Cardiovascular: Regular rate Lungs: Normal air movement Abdomen: Soft, Non Tender, Gravid Neurological: Deep Tendon Reflexes 2+/4 and Symmetrical, Neuro grossly intact. 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 Negative for: Vulvar lesions Estimated gestational size: Appropriate for gestational size Presentation: Cephalic Cervix Dilation (cm): 1 Assessment/Plan All Active Problems (Last Reviewed 06/15/18 @ 13:11 by Nga Olguin) PROM (premature rupture of membranes) (Acute) Cholecystitis (Acute) Supervision of normal in third trimester (Acute) (Acute) This is a 23 year-old, at 40 weeks gestational age presents with PROM Patient presents IOL, plan management for , pitocin per procotol Pain management: plans epidural. GBS negative. Management of any complications: none I have reviewed the [facility] and made any clinically relevant updates.
--- NOTE | 2018-06-20 01:35 | PCM.OB.VAG ---
- Problem List (1) PROM (premature rupture of membranes) Status: Acute (2) Cholecystitis Status: Acute (3) Supervision of normal in third trimester Status: Acute Qualifiers: Comment: PRR TARAH 06/18/18 Chris boy Efrain (4) Status: Acute Qualifiers: Comment: ANDREW [employer]. genetic carrier and ntd screening declined. normal anatomy scan Vaginal Delivery Maternal Presentation: Spontaneous Rupture of Membranes prom Method of Induction: Pitocin Medical Reason for Induction: Premature Rupture of Membranes Amniotic Membrane Rupture Type: Spontaneous at home Amniotic Fluid Description: Clear Final TARAH: 06/18/18 Gestational age: 40 Weeks and 2 Days Date of Procedure: 06/20/18 Pre-Operative Diagnosis: prom Post-Operative Diagnosis: same Surgery/ Procedure Performed: Spontaneous Vaginal Delivery Type of Anesthesia: Epidural Description of Procedure: Patient began pushing and delivered the head in the YAMEL presentation. The head was delivered atraumatically . The anterior and posterior shoulders delivered without complication followed by the rest of the and the infant was placed on the maternal abdomen. Delayed cord clamping was employed for approximately 60 seconds. Cord was clamped and cut and gentle traction was applied to the cord and the placenta delivered spontaneously immediately following it was noted to be intact with three-vessel cord. The perineum and vagina were inspected and noted to have a 2nd degree laceration that was repaired in the usual fashion. EBL was 300 cc. Patient and tolerated delivery well. Presentation: YAMEL Placenta Disposition: [facility] Cord Vessel Description: 3 Vessels Cord Entanglement: None Estimated Blood Loss: 300 A gender: Male Episiotomy Description: None Laceration: Perineal Extension/lac, 2nd degree Medications given after delivery: IV Pitocin Complications: None
[2018-06-20] MEDS: Oxytocin 30 units/NS 500 ml 30 UNITS/500 ML IV.SOLN 334 UNITS IV (02:57)
[2018-06-20] MEDS: Oxytocin 30 units/NS 500 ml 30 UNITS/500 ML IV.SOLN 167 UNITS IV (03:27)
[2018-06-20 08:00] VITALS: BP 106/58; PULSE 83; RESP 18; TEMP 36.8
--- NOTE | 2018-06-20 11:33 | NURSING ---
late entry, epidural catheter removed with assessment this morning. blue tip intact pt. tolerated well.
[2018-06-20 12:00] VITALS: BP 119/63; PULSE 81; RESP 18; TEMP 36.6
[2018-06-20] MEDS: Prenatal Vits Tablet 1 TABLET PO (12:12)
[2018-06-20 15:44] VITALS: BP 119/72; PULSE 82; RESP 18; TEMP 36.2
[2018-06-20 21:05] VITALS: BP 103/69; PULSE 79; RESP 16; TEMP 36.3
[2018-06-20] MEDS: Naproxen 250 MG Tablet PO (21:41)
[2018-06-20 23:40] VITALS: BP 94/50; PULSE 70; RESP 16; TEMP 35.9
--- NOTE | 2018-06-21 08:13 | PCM.PN.OB ---
Patient Problems: Active and Suspected Problems (Last Reviewed 06/15/18 @ 13:11 by Nga Olguin) PROM (premature rupture of membranes) (Acute) Subjective: doing well no complaints pain controlled no CP SOB N V ambulating well tolerating po lochia moderate,bottle feeding- going well - Physical Exam General: Alert, Oriented x3 Abdomen: Soft, Non Tender, - - FF below U Vital Signs Temp Pulse Resp BP 96.6 F L 70 16 94/50 L 06/20/18 23:40 06/20/18 23:40 06/20/18 23:40 06/20/18 23:40 Oxygen Delivery Method Room Air Weight: 190 lb 12.8 oz Body Mass Index (BMI) 33.7 Intake and Output for Last 24 Hours 06/19/18 06/20/18 06/21/18 23:59 23:59 23:59 Intake Total 1550 / 1550 3442 / 3442 Output Total 250 / 250 2850 / 2850 Balance 1300 / 1300 592 / 592 Medical Necessity - Tobacco Use Smoking Status: Former smoker Assessment/Plan All Active Problems (Last Reviewed 06/15/18 @ 13:11 by Nga Olguin) PROM (premature rupture of membranes) (Acute) Cholecystitis (Acute) Supervision of normal in third trimester (Acute) (Acute) s/p PPD # 1 1. routine post delivery care 2. breast feeding- support given 3. rh positive 4. rubella immune 5. home today
--- NOTE | 2018-06-21 08:15 | DCINST_ITS ---
Additional Instructions: If you experience any of the following, contact your healthcare provider. * Bleeding that soaks a pad every hour for 2 hours * Fever 100.4 or higher * Unrelieved incision or abdominal pain * Swelling, redness, discharge or bleeding from your incision or episiotomy site * Your incision begins to separate * Problems urinating (including inability to urinate or burning while urinating). * Visual changes * Severe headache * Flu-like symptoms * Pain or redness in one of both of your breasts * Pain, warmth, tenderness or swelling in your legs, especially the calf area * Frequent nausea and vomiting * Symptoms of depression or anxiety If you experience any of the following, call 911 or go to the nearest Emergency Room. * Chest pain * Problems breathing * Seizure activity * Partial or complete paralysis of a body part, slurred speech, weakness or drooping of the face, or a sudden inability to walk or hold your balance Allergies/Adverse Reactions: Allergies No Known Allergies Allergy (Verified 06/19/18 10:29) Medications to take at Discharge Vit No.130/Iron/Folic [ Tablet] 1 ea PO DAILY 03/23/18 Primary Care Physician: Care Physician,No Primary [Primary Care Provider] - Test Results: Test results from this visit will be discussed in further detail at your follow- up appointment, if applicable.
--- NOTE | 2018-06-21 08:15 | PCM.DCVAG ---
Additional Instructions: If you experience any of the following, contact your healthcare provider. Bleeding that soaks a pad every hour for 2 hours Fever 100.4 or higher Unrelieved incision or abdominal pain Swelling, redness, discharge or bleeding from your incision or episiotomy site Your incision begins to separate Problems urinating (including inability to urinate or burning while urinating). Visual changes Severe headache Flu-like symptoms Pain or redness in one of both of your breasts Pain, warmth, tenderness or swelling in your legs, especially the calf area Frequent nausea and vomiting Symptoms of depression or anxiety If you experience any of the following, call 911 or go to the nearest Emergency Room. Chest pain Problems breathing Seizure activity Partial or complete paralysis of a body part, slurred speech, weakness or drooping of the face, or a sudden inability to walk or hold your balance Allergies/Adverse Reactions: Allergies No Known Allergies Allergy (Verified 06/19/18 10:29) Medications to take at Discharge Vit No.130/Iron/Folic [ Tablet] 1 ea PO DAILY 03/23/18 Primary Care Physician: Care Physician,No Primary [Primary Care Provider] - Test Results: Test results from this visit will be discussed in further detail at your follow-up appointment, if applicable.
[2018-06-21 08:39] VITALS: BP 99/55; PULSE 80; RESP 16; TEMP 36.1; O2SAT 99
[2018-06-21 13:22] VITALS: BP 107/56; PULSE 71; RESP 16; TEMP 36.4; O2SAT 97
--- NOTE | 2018-06-21 16:11 | CASEMGMT ---
Social Work Assessment Labor and Delivery Unit Date of Referral: 06/21/2018 Time of Referral: 827 Referred By: Dr. Bliss Date of Intervention: 06/21/2018 Time of Intervention: 1255 Reason for Referral: resources History obtained from: medical record, mother of baby (MOB) and father of baby (FOB) Household composition: MOB reports to own trailer but rent the property the trailer sits on. Lives with FOB and 2 dogs. Plan for baby boy to reside in the home. Patient's parent/guardian status: MOB and FOB have been since November 2017 but together for 4 years. Privately, MOB denies any form of abuse, control, or intimidation by FOB. [place] baby boy, Chris Schneider is the first child for both. Medical History: MOB is G1, P0 to 1 after delivering Chris. care started at 11 weeks in [place], [place] but then transferred care to [place] around 27 weeks due to differences with the OBGYN in [place]. MOB reports has been happy with care received in [place]. Baby born weighing 7 pounds 11 ounces with Apgars 8 and 9 at 1 and 5 minutes of life. Educational Status: MOB has some college credits, is able to read, write, and no indicates of any learning comprehension issues. 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 FOB is [employer] adjunct faculty mathematics department at the [employer]. Supplies: MOB and FOB report to have needed baby supplies including car seat, crib, bassinet, clothing, diapers, wipes, bottles, and formula. Childcare/Caregiver(s): MOB and FOB will be primary caregivers with supplemental backup from family when needed. Transportation: No reported issues or concerns. Programs/Agencies Involved: No agency involvement and MOB declines [facility] referral. MOB accepting of information however. Reports may consider WIC down the road but not currently interested. Behavioral Health Issues: Mental Health History: MOB denies any mental health history including depression, anxiety, or bipolar disorder. Substance Use History: MOB and FOB deny substance use history. Drug Screens: No drug screens noted in the medical record. Family/Social Stressors: No identified family stressors, the was accepted, and MOB states has been excited about the baby. MOB and FOB are planning to move from [facility] soon, back to the [facility] to be closer to family supports. Support Systems: MOB?s parents, FOB?s parents, and the FOB are identified as supports. MOB reports to talk to FOB about how feeling and indicates FOB is a good emotional support. FOB will be taking 4 weeks off of work to help MOB with transition home. Depression/Shaken Baby/Safe Sleeping: Educated both MOB and FOB to safe sleeping and shaken baby prevention. Educated to depression, anxiety, risk factors and importance of seeking help/support should symptoms arise. MOB voices understanding. ASSESSMENT: Met with MOB and FOB together and then with MOB alone. MOB and FOB appearing relaxed with each other in body language and communication. FOB held baby during assessment, was gentle and comforting to the baby, patting the baby?s back and rocking the baby. When the RN came to get baby for circumcision, MOB voiced how cute the baby is, smiling at baby and looking at baby. MOB held good eye contact during social work visit, often giggled after answering though remained appropriate. MOB spontaneously shared about crying episode with the nurse yesterday, feeling tired and needing sleep. MOB reports to feel better today, reports to feel to have adequate support and is trying to take in all information nursing is offering to the family. MOB reports she has not had a lot of experience with babies but FOB has and has been helpful to MOB. MOB and FOB reports to have adequate family support, to have supplies, and both listened to educated on depression, anxiety and importance of seeking out help and support should symptoms arise. Emotional support offered to parents this date. PLAN: MOB and baby to home today. Resources lists for [facility] given, depression packet given, and [facility] pamphlet provided. Provided this auto service writer?s number to call should family be in need of [facility] resources after and when the family moves. No other services requested or indicated. -SUNNI Collado, [employer]ATION HELPER
== END 2018-06-21 17:15 | disposition home or self-care (01) | DRG 807 ==
LOC: WPOUT 10:18
PROVIDERS: Admitting Provider Obstetrics & Gynecology; Referring Provider Obstetrics & Gynecology; Visit Provider Obstetrics & Gynecology
DX: O42.92 Full-term premature rupture of membranes, unspecified as to length of time between rupture and onset of labor (principal); Z37.0 Single live birth; O70.1 Second degree perineal laceration during delivery; Z3A.40 40 weeks gestation of pregnancy; Z87.891 Personal history of nicotine dependence; Z90.49 Acquired absence of other specified parts of digestive tract
CPT/HCPCS: 59025; 59050; 84112; 85027; 86850; 86900; 99218; J7120; G0378

== ENCOUNTER → 2018-08-07 16:47 | Outpatient (CLI) | payer OTHER, SELFPAY ==
[2018-08-07 13:38] VITALS: BMI 33.7
[2018-08-10 15:52] LABS: HPV Reflexed? NOT INDICATED
== END ==
PROVIDERS: Referring Provider Obstetrics & Gynecology; Visit Provider Obstetrics & Gynecology
DX: Z12.4 Encounter for screening for malignant neoplasm of cervix (principal)
CPT/HCPCS: 87624; 88175; G0145